=== PATIENT | male | born 1990 | race Caucasian/White ===

== ENCOUNTER → 2019-11-14 11:02 | Outpatient (CLI) | payer OTHER, SELFPAY ==
[2019-11-15 10:05] LABS: COVID19 Sendout Not Detected (Not Detect)
== END ==
PROVIDERS: Visit Provider Physician Assistant
DX: Z11.59 Encounter for screening for other viral diseases (principal)
CPT/HCPCS: 87635

== ENCOUNTER 2020-01-09 10:24 | Emergency (ER) | payer OTHER, SELFPAY ==
[2020-01-09] VITALS (9 sets, daily range): BP systolic 119–143; BP diastolic 56–89; PULSE 95–125; RESP 15–26; TEMP 37.7–39.6; O2SAT 97–100
--- NOTE | 2020-01-09 10:36 | DI.RAD.S_ITS ---
PROCEDURE: XR CHEST 1V INDICATIONS: flu-like symptoms TECHNIQUE: One view of the chest was acquired. COMPARISON: None. FINDINGS: Surgical changes and devices: None. Lungs and pleura: Lungs are clear. No pleural effusions or pneumothorax. Mediastinum: Mediastinal contours appear normal. Heart size is normal. Bones and chest wall: No suspicious bony lesions. Overlying soft tissues appear unremarkable. IMPRESSION: No acute process. Dictated by: Qamar Cain M.D. on 01/09/2020 at 11:31 Approved by: Qamar Cain M.D. on 01/09/2020 at 11:32
--- NOTE | 2020-01-09 10:40 | ED_ITS ---
HPI - Fever General Chief Complaint: Fever Stated Complaint: BLOODY BOWEL MOVEMENT,CHILLS,HANDS NUMB Time Seen by Provider: 01/09/20 10:32 Source: patient Mode of arrival: Ambulatory Limitations: no limitations History of Present Illness HPI Narrative: Patient is a 29-year-old male who presents with fever of 103 tod ay. He states he felt fine yesterday and even this morning he was able to workout afterwards he started shaking uncontrollably. He denies any cough shortness of breath chest pain abdominal pain nausea or vomiting. He did have some abnormal bowel movements this morning that were loose and some blood streak but not significant amount of blood. He has had no sick contacts or known exposure to covid. MD complaint: fever Related Data Home Medications Medication Instructions Recorded Confirmed No Known Home Medications 01/09/20 01/09/20 Allergies Allergy/AdvReac Type Severity Reaction Status Date / Time Penicillins Allergy Intermediate Hives Verified 01/09/20 10:35 Review of Systems Review of Systems ROS Unobtainable: All systems reviewed & are unremarkable except as noted in HPI and below Constitutional Constitutional: Reports body ache(s), Reports chills, Reports fatigue and Reports fever(s) Eyes Eyes: Denies change in vision, Denies eye discharge, Denies irritation and Denies loss of vision ENT Ears, Nose, Mouth, and Throat: Denies change in voice, Denies neck pain and Denies sore throat Cardiovascular Cardiovascular: Denies chest pain, Denies irregular heart rhythm, Denies lightheadedness, Denies palpitations, Denies dyspnea, Denies dyspnea on exertion and Denies orthopnea Respiratory Respiratory: Denies cough, Denies dyspnea, Denies dyspnea on exertion and Denies wheezing Gastrointestinal Gastrointestinal: Denies abdominal pain, Denies change in bowel habits, Denies diarrhea, Denies nausea and Denies vomiting Musculoskeletal Musculoskeletal: Denies neck pain Integumentary/Breasts Skin/Breast: Denies pruritus, Denies erythema, Denies rash and Denies wounds Neurologic Neurologic: Denies loss of vision Endocrine Endocrine: Reports fatigue and Denies palpitations Allergic/Immunologic Allergic/Immunologic: Denies wheezing Patient History Medical History Patient denies medical problems (Acute) Social History Smoking Status: Never smoker Smoking Status: Never smoker alcohol intake frequency: 0-2 drinks per day Substance Use Type: does not use Exam Initial Vital Signs Initial Vital Signs: Vital Signs Temperature 103.2 F H 01/09/20 10:25 Pulse Rate 120 H 01/09/20 10:25 Respiratory Rate 22 01/09/20 10:25 Blood Pressure 142/89 H 01/09/20 10:25 Pulse Oximetry 100 01/09/20 10:25 GENERAL: Well-appearing, well-nourished and in no acute distress. HEENT: Head atraumatic,EOMI, pupils reactive, face symmetric, moist mucous membranes CARDIOVASCULAR: Tachycardic regular rhythm no murmur RESPIRATORY: Breath sounds equal bilaterally, no wheezes rales or rhonchi. ABDOMEN: Soft, nontender. Normoactive bowel sounds all 4 quadrants. No guarding or rebound. : No CVA tenderness EXTREMITIES: Normal range of motion, no clubbing or edema. Neurovascularly intact NEUROLOGICAL: Alert and oriented x4.Normal gait and speech. SKIN: Warm, dry, no laceration, no petechiae, no rashes or lesions. Course Orders Ordered: ED Orders 01/09/20 10:36 XR chest 1V Stat EKG-12 Lead Stat 01/09/20 10:45 C-Reactive Protein Quant Stat Complete Blood Count AUTO DIFF Stat Comprehensive Metabolic Panel Stat D Dimer Stat Ferritin Stat LDH [Lactate Dehydrogenase] Stat Lactate (Lactic Acid) Stat NT-proBNP (BNP-Adult 18+) Stat Procalcitonin Stat Troponin & CK Cardiac Panel Stat 01/09/20 12:17 Urinalysis and Microscopic Stat Discontinued Medications Acetaminophen (Tylenol) 975 mg PO NOW ONE Stop: 01/09/20 10:38 Last Admin: 01/09/20 10:45 Dose: 975 mg Documented by: RSTONE Sodium Chloride (Normal Saline 0.9%) 1,000 mls @ 1,000 mls/hr IV BOLUS ONE Stop: 01/09/20 11:36 Last Infusion: 01/09/20 11:50 Dose: 0 mls/hr Documented by: Admin: 01/09/20 10:46 Dose: 1,000 mls/hr Documented by: RSTONE Sodium Chloride (Normal Saline 0.9%) 1,000 mls @ 1,000 mls/hr IV BOLUS ONE Stop: 01/09/20 12:48 Last Infusion: 01/09/20 13:13 Dose: 0 mls/hr Documented by: Admin: 01/09/20 12:15 Dose: 1,000 mls/hr Documented by: TOMY Ketorolac Tromethamine (Toradol) 30 mg IV NOW ONE Stop: 01/09/20 10:38 Last Admin: 01/09/20 10:45 Dose: 30 mg Documented by: CAMI Vital Signs Vital signs: Vital Signs - 8 hr 01/09/20 10:25 01/09/20 10:44 01/09/20 10:45 Temperature 103.2 F H 103.2 F H Pulse Rate 120 H 125 H Respiratory Rate 22 24 Blood Pressure 142/89 H Pulse Oximetry 100 100 01/09/20 11:00 01/09/20 11:30 01/09/20 11:41 Temperature 102.5 F H Pulse Rate 115 H 108 H Respiratory Rate 26 H 15 Blood Pressure 143/63 H 140/60 Pulse Oximetry 100 100 01/09/20 12:00 01/09/20 12:33 01/09/20 13:15 Temperature 99.8 F H Pulse Rate 106 H 100 H 95 H Respiratory Rate 24 21 20 Blood Pressure 121/56 L 119/56 L Pulse Oximetry 98 97 100 MDM - Fever Lab Data Attestation: I reviewed the patient's lab results. Result diagrams: 01/09/20 10:45 01/09/20 10:45 Labs: Lab Results 01/09/20 01/09/20 01/09/20 Range/Units 10:45 10:45 10:45 WBC 7.2 (4.5-11.0) X10^3/uL RBC 4.82 (4.5-5.9) X10^6/uL Hgb 14.5 (13.5-17.5) g/dL Hct 42.1 (41-53) % MCV 87.5 (80-100) fL MCH 30.0 (26-34) PG MCHC 34.3 (30-36) % RDW 13.0 (11.6-14.8) % Plt Count 136 L (150-400) X10^3/uL Neut % (Auto) 86.8 H (50-75) % Lymph % (Auto) 9.7 L (25-40) % [place] % (Auto) 2.4 L (3-14) % Eos % (Auto) 0.9 L (2-4) % Baso % (Auto) 0.2 (0-2) % Neut # (Auto) 6200 (5396-3572) /uL Lymph # (Auto) 700 L (8655-0819) /uL [place] # (Auto) 200 (0-900) /uL Eos # (Auto) 100 (0-450) /uL Baso # (Auto) 0 (0-100) /uL D-Dimer 296 H (<230) ng/mL Sodium (137-145) mmol/L Potassium (3.4-5.1) mmol/L Chloride (98-107) mmol/L Carbon Dioxide (22-32) mmol/L BUN (9-20) mg/dL Creatinine (0.66-1.25) mg/dL Estimated GFR (>60) mL/min BUN/Creatinine Ratio (6-22) Glucose (70-100) mg/dL Lactate (0.7-2.1) mmol/L Calcium (8.4-10.2) mg/dL Ferritin (18-464) ng/mL Total Bilirubin (0.2-1.3) mg/dL AST (17-59) IU/L ALT (<50) IU/L Alkaline Phosphatase (38-126) U/L Lactate Dehydrogenase (313-618) U/L Total Creatine Kinase (55-170) U/L C-Reactive Protein (<1.0) mg/dL Total Protein (6.3-8.2) g/dL Albumin (3.5-5.0) g/dL Globulin (1.7-4.1) g/dL Albumin/Globulin Ratio (1.0-2.8) Procalcitonin 0.06 (<0.5) ng/mL Urine Color Urine Appearance Urine pH (4.5-8.0) Ur Specific [place] (1.000-1.035) Urine Protein (Negative) Urine Glucose (UA) (Negative) g/dL Urine Ketones (NEGATIVE) Urine Occult Blood (Negative) Urine Nitrate (Negative) Urine Bilirubin (NEGATIVE) Urine Urobilinogen (0.2) E.U./dL Ur Leukocyte Esterase (NEGATIVE) Urine RBC (0-5/HPF) Urine WBC (0-5/HPF) Ur Squamous Epith Cells (0-5/HPF) Urine Bacteria (None) Ur Culture Indicated? 01/09/20 01/09/20 01/09/20 Range/Units 10:45 10:45 10:45 WBC (4.5-11.0) X10^3/uL RBC (4.5-5.9) X10^6/uL Hgb (13.5-17.5) g/dL Hct (41-53) % MCV (80-100) fL MCH (26-34) PG MCHC (30-36) % RDW (11.6-14.8) % Plt Count (150-400) X10^3/uL Neut % (Auto) (50-75) % Lymph % (Auto) (25-40) % [place] % (Auto) (3-14) % Eos % (Auto) (2-4) % Baso % (Auto) (0-2) % Neut # (Auto) (8509-7810) /uL Lymph # (Auto) (9697-8710) /uL [place] # (Auto) (0-900) /uL Eos # (Auto) (0-450) /uL Baso # (Auto) (0-100) /uL D-Dimer (<230) ng/mL Sodium 138 (137-145) mmol/L Potassium 3.9 (3.4-5.1) mmol/L Chloride 104 (98-107) mmol/L Carbon Dioxide 25 (22-32) mmol/L BUN 22 H (9-20) mg/dL Creatinine 1.01 (0.66-1.25) mg/dL Estimated GFR > 60.0 (>60) mL/min BUN/Creatinine Ratio 21.8 (6-22) Glucose 101 H (70-100) mg/dL Lactate 1.6 (0.7-2.1) mmol/L Calcium 10.0 (8.4-10.2) mg/dL Ferritin 63 (18-464) ng/mL Total Bilirubin 0.6 (0.2-1.3) mg/dL AST 54 (17-59) IU/L ALT 39 (<50) IU/L Alkaline Phosphatase 90 (38-126) U/L Lactate Dehydrogenase 471 (313-618) U/L Total Creatine Kinase 584 H (55-170) U/L C-Reactive Protein < 0.5 (<1.0) mg/dL Total Protein 7.9 (6.3-8.2) g/dL Albumin 5.2 H (3.5-5.0) g/dL Globulin 2.7 (1.7-4.1) g/dL Albumin/Globulin Ratio 1.9 (1.0-2.8) Procalcitonin (<0.5) ng/mL Urine Color Urine Appearance Urine pH (4.5-8.0) Ur Specific [place] (1.000-1.035) Urine Protein (Negative) Urine Glucose (UA) (Negative) g/dL Urine Ketones (NEGATIVE) Urine Occult Blood (Negative) Urine Nitrate (Negative) Urine Bilirubin (NEGATIVE) Urine Urobilinogen (0.2) E.U./dL Ur Leukocyte Esterase (NEGATIVE) Urine RBC (0-5/HPF) Urine WBC (0-5/HPF) Ur Squamous Epith Cells (0-5/HPF) Urine Bacteria (None) Ur Culture Indicated? 01/09/20 Range/Units 12:17 WBC (4.5-11.0) X10^3/uL RBC (4.5-5.9) X10^6/uL Hgb (13.5-17.5) g/dL Hct (41-53) % MCV (80-100) fL MCH (26-34) PG MCHC (30-36) % RDW (11.6-14.8) % Plt Count (150-400) X10^3/uL Neut % (Auto) (50-75) % Lymph % (Auto) (25-40) % [place] % (Auto) (3-14) % Eos % (Auto) (2-4) % Baso % (Auto) (0-2) % Neut # (Auto) (0107-7536) /uL Lymph # (Auto) (3713-8555) /uL [place] # (Auto) (0-900) /uL Eos # (Auto) (0-450) /uL Baso # (Auto) (0-100) /uL D-Dimer (<230) ng/mL Sodium (137-145) mmol/L Potassium (3.4-5.1) mmol/L Chloride (98-107) mmol/L Carbon Dioxide (22-32) mmol/L BUN (9-20) mg/dL Creatinine (0.66-1.25) mg/dL Estimated GFR (>60) mL/min BUN/Creatinine Ratio (6-22) Glucose (70-100) mg/dL Lactate (0.7-2.1) mmol/L Calcium (8.4-10.2) mg/dL Ferritin (18-464) ng/mL Total Bilirubin (0.2-1.3) mg/dL AST (17-59) IU/L ALT (<50) IU/L Alkaline Phosphatase (38-126) U/L Lactate Dehydrogenase (313-618) U/L Total Creatine Kinase (55-170) U/L C-Reactive Protein (<1.0) mg/dL Total Protein (6.3-8.2) g/dL Albumin (3.5-5.0) g/dL Globulin (1.7-4.1) g/dL Albumin/Globulin Ratio (1.0-2.8) Procalcitonin (<0.5) ng/mL Urine Color Straw Urine Appearance Clear Urine pH 5.5 (4.5-8.0) Ur Specific [place] 1.010 (1.000-1.035) Urine Protein Negative (Negative) Urine Glucose (UA) Negative (Negative) g/dL Urine Ketones Negative (NEGATIVE) Urine Occult Blood Negative (Negative) Urine Nitrate Negative (Negative) Urine Bilirubin Negative (NEGATIVE) Urine Urobilinogen 0.2 (0.2) E.U./dL Ur Leukocyte Esterase Negative (NEGATIVE) Urine RBC None seen (0-5/HPF) Urine WBC 0-1/hpf (0-5/HPF) Ur Squamous Epith Cells 0-1 /hpf (0-5/HPF) Urine Bacteria None seen (None) Ur Culture Indicated? Cult not indicated Imaging Data Chest x-ray: Radiologist's Impression: PROCEDURE: XR CHEST 1V INDICATIONS: flu-like symptoms TECHNIQUE: One view of the chest was acquired. COMPARISON: None. FINDINGS: Surgical changes and devices: None. Lungs and pleura: Lungs are clear. No pleural effusions or pneumothorax. Mediastinum: Mediastinal contours appear normal. Heart size is normal. Bones and chest wall: No suspicious bony lesions. Overlying soft tissues appear unremarkable. IMPRESSION: No acute process. Dictated by: Qamar Cain M.D. on 01/09/2020 at 11:31 Approved by: Qamar Cain M.D. on 01/09/2020 at 11:32 ECG Data Attestation: I personally reviewed and interpreted this ECG as follows: Prior ECG tracings: not available for review Interpretation: Normal sinus rhythm rate 115 p.r. interval 177 QRS [address] changes no T-wave inversions MDM Narrative Medical decision making narrative: PATIENT HAS EXTREMELY HIGH FEVER NO SOURCE OF INFECTION IDENTIFIED AT THIS TIME COVID-19 IS PENDING. I RECOMMEND PATIENT SELF QUARANTINE UNTIL TEST RETURN AND RETURN IF SYMPTOMS ARE WORSENING. Recommend hydration and fever control. Discharge Plan Departure Patient Disposition: Home Clinical Impression: Fever Qualifiers: Fever type: unspecified Qualified Code(s): R50.9 - Fever, unspecified Discharge Date/Time: 01/09/20 13:16 Instructions: DI for Fever (Symptom) -- Adult Activity Restrictions/Additional Instructions: *You have been diagnosed with fever *What to do: COVID-19 test is pending recommend he self quarantine until test results return in about 7 days we will call you with results. Please follow instructions below. Increase fluid intake and fever control with Tylenol or ibuprofen *Continue to take medications as directed Tylenol 1000 mg every 6 hours if needed for pain or fever Motrin 800 mg every 8 hours if needed for pain or fever *Follow up with your primary care provider in 2-3 days *Return to ER if you should have increasing shortness of breath, persistent fever not controlled, more bloody stool, increased abdominal pain or any new, worsening or concerning symptoms Prescriptions: No Action No Known Home Medications RF: 0 Referrals: [facility] [Provider Group]
[2020-01-09] MEDS: KETOROLAC 60 MG/2 ML VIAL 30 MG IV (10:45)
[2020-01-09] MEDS: ACETAMINOPHEN 325 MG TABLET 975 MG PO (10:45)
[2020-01-09] MEDS: SODIUM CHLORIDE 0.9% 1,000 ML 1000 ML IV ×2 (10:46→12:15)
[2020-01-09 10:56] LABS: Add Manual Diff / Slide Review NO; Basophils Absolute Auto 0 /uL (0-100); Basophils Percent Auto 0.2 % (0-2); Eosinophils Absolute Auto 100 /uL (0-450); Eosinophils Percent Auto 0.9 % (2-4); Hematocrit 42.1 % (41-53); Hemoglobin 14.5 g/dL (13.5-17.5); Lymphocytes Absolute Auto 700 /uL (1100-4500); Lymphocytes Percent Auto 9.7 % (25-40); Mean Corpuscular HGB Conc 34.3 % (30-36); Mean Corpuscular Volume 87.5 fL (80-100); Monocytes Absolute Auto 200 /uL (0-900); Monocytes Percent Auto 2.4 % (3-14); Neutrophils Absolute Auto 6200 /uL (1500-7000); Neutrophils Percent Auto 86.8 % (50-75); Platelet Count 136 X10^3/uL (150-400); Red Blood Cell Count 4.82 X10^6/uL (4.5-5.9); White Blood Cell Count 7.2 X10^3/uL (4.5-11.0)
[2020-01-09 11:06] LABS: D Dimer 296 ng/mL (<230)
[2020-01-09 11:08] LABS: Lactate (Lactic Acid) 1.6 mmol/L (0.7-2.1)
[2020-01-09 11:10] LABS: Lactate Dehydrogenase 471 U/L (313-618)
[2020-01-09 11:12] LABS: Alanine Aminotransferase 39 IU/L (<50); Albumin 5.2 g/dL (3.5-5.0); Albumin Globulin Ratio 1.9 (1.0-2.8); Alkaline Phosphatase 90 U/L (38-126); Aspartate Aminotransferase 54 IU/L (17-59); BUN Creatinine Ratio 21.8 (6-22); Bilirubin Total 0.6 mg/dL (0.2-1.3); Blood Urea Nitrogen 22 mg/dL (9-20); Carbon Dioxide 25 mmol/L (22-32); Chloride 104 mmol/L (98-107); Creatine Kinase 584 U/L (55-170); Estimated Glomerular Filt Rate > 60.0 mL/min (>60); Globulin 2.7 g/dL (1.7-4.1); Glucose 101 mg/dL (70-100); Potassium 3.9 mmol/L (3.4-5.1); Sodium 138 mmol/L (137-145); Total Protein 7.9 g/dL (6.3-8.2)
[2020-01-09 11:14] LABS: C-Reactive Protein Quant < 0.5 mg/dL (<1.0)
[2020-01-09 11:44] LABS: Ferritin 63 ng/mL (18-464)
[2020-01-09 11:48] LABS: Procalcitonin 0.06 ng/mL (<0.5)
[2020-01-09 12:43] LABS: Bacteria Urine None Seen; RBC Urine None Seen (0-5/HPF)
[2020-01-09 12:47] LABS: Appearance Urine UA CLEAR; Bilirubin Urine UA NEGATIVE (NEGATIVE); Color Urine UA Straw; Glucose Urine UA NEGATIVE (Negative); Ketones Urine UA NEGATIVE (NEGATIVE); Leukocyte Esterase Urine UA NEGATIVE (NEGATIVE); Nitrite Urine UA NEGATIVE (Negative); Occult Blood Urine UA NEGATIVE (Negative); Protein Urine UA NEGATIVE (Negative); Urobilinogen Urine UA 0.2 E.U./dL (0.2); pH Urine UA 5.5 (4.5-8.0)
[2020-01-09 12:56] LABS: Culture Indicated Urine Cult Not Indicated; Squamous Epithelial Cell Urine 0-1 /HPF (0-5/HPF); WBC Urine 0-1/HPF (0-5/HPF)
[2020-01-09 15:10] LABS: CKMB % Relative Index 0.2 % (1.5-5.0); Creatine Kinase MB 1.37 ng/mL (<2.37); NT-proBNP (BNP-Adult 18+) 34 pg/mL (<125); Troponin I < 0.012 ng/mL (0.01-0.034)
[2020-01-09 15:11] LABS: HEMOLYSIS < 15 (0-50)
[2020-01-11 04:11] LABS: COVID19 Sendout Not Detected (Not Detected)
== END 2020-01-09 13:16 | disposition home or self-care (01) ==
PROVIDERS: Emergency Provider Emergency Medicine
DX: Z03.818 Encounter for observation for suspected exposure to other biological agents ruled out (principal); R50.9 Fever, unspecified
CPT/HCPCS: 36415; 71045; 80053; 81001; 82550; 82553; 82728; 83605; 83615; 83880; 84145; 84484; 85025; 85379; 86140; 87635; 93005; 96361; 96374; 99284; J1885